=== PATIENT | male | born 2000 | race Caucasian/White ===

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

== ENCOUNTER 2022-03-24 21:30 | Emergency (ER) | payer OTHER ==
[~2022-03-24] VITALS: Ht 190.5 cm; Wt 81.2 kg
[2022-03-24 22:50] LABS: HEMATOCRIT 44.9 % (42.0-52.0); HEMOGLOBIN 14.7 g/dl (13.5-17.5); MEAN CORPUSCULAR HEMOGLOBIN 28.8 pg (27.0-33.0); MEAN CORPUSCULAR HGB CONC 32.7 g/dl (32.0-36.5); PLATELET COUNT, AUTOMATED 192 10^3/uL (150-450); WHITE BLOOD COUNT 10.7 10^3/uL (4.0-10.0)
[2022-03-24 23:17] LABS: ETHYL ALCOHOL (ETHANOL) 0.003 % (0.000-0.010)
[2022-03-24 23:18] LABS: ACETAMINOPHEN LEVEL < 2.0 UG/ML (10.0-20.0); SALICYLATE LEVEL < 3.0 MG/DL (<30)
[2022-03-24 23:19] LABS: BILIRUBIN,DIRECT 0.1 MG/DL (<0.4)
[2022-03-24 23:20] LABS: RSV AMPLIFICATION NEGATIVE (NEGATIVE)
[2022-03-24 23:22] LABS: ALBUMIN 4.5 G/DL (3.2-5.2); ALKALINE PHOSPHATASE 87 U/L (46-116); ALT/SGPT 17 U/L (7.0-40); AST/SGOT 22 U/L (<34); BILIRUBIN,TOTAL 0.4 MG/DL (0.3-1.2); BLOOD UREA NITROGEN 15 MG/DL (9-23); CALCIUM LEVEL 10.1 MG/DL (8.5-10.1); CARBON DIOXIDE LEVEL 29 MMOL/L (20-31); CHLORIDE LEVEL 104 MMOL/L (98-107); GLOMERULAR FILTRATION RATE > 60.0 (>60); GLUCOSE, FASTING 85 MG/DL (60-100); POTASSIUM SERUM 4.1 MMOL/L (3.5-5.1); SODIUM LEVEL 141 MMOL/L (136-145)
[2022-03-24 23:25] LABS: THYROID STIMULATING HORMONE 3.334 uIU/ML (0.55-4.78)
[2022-03-24 23:27] LABS: AMPHETAMINES LEVEL URINE NEGATIVE (NEGATIVE); BARBITURATES URINE NEGATIVE (NEGATIVE); BENZODIAZEPINES URINE NEGATIVE (NEGATIVE); COCAINE METABOLITE URINE NEGATIVE (NEGATIVE); METHADONE URINE NEGATIVE (NEGATIVE)
[2022-03-24 23:28] LABS: CANNABINOIDS URINE NEGATIVE (NEGATIVE); OPIATES URINE NEGATIVE (NEGATIVE); PHENCYCLIDINE URINE NEGATIVE (NEGATIVE)
[2022-03-25 01:03] VITALS: BP 136/74
== END 2022-03-25 01:06 | disposition home or self-care (01) ==
LOC: M ED 21:30
DX: F32.9 Major depressive disorder, single episode, unspecified (principal)

== ENCOUNTER 2022-06-06 14:19 | Emergency (ER) | payer OTHER ==
[~2022-06-06] VITALS: Ht 190.5 cm; Wt 79.4 kg
[2022-06-06] MEDS ORDERED: [UNRECOGNIZED DRUG - CODE] PO (17:27)
[2022-06-06] MEDS ORDERED: IBUP-1022 PO (17:27)
[2022-06-06 17:36] VITALS: BP 113/62
== END 2022-06-06 17:38 | disposition home or self-care (01) ==
LOC: M ED 14:19
DX: S76.911A Strain of unspecified muscles, fascia and tendons at thigh level, right thigh, initial encounter (principal); Y92.39 Other specified sports and athletic area as the place of occurrence of the external cause; Y93.02 Activity, running

== ENCOUNTER 2022-09-23 21:07 | Emergency (ER) | payer OTHER ==
[~2022-09-23] VITALS: Ht 190.5 cm; Wt 84.1 kg
[~2022-09-23 21:07] MED LIST changes: +IBUP-1022 PO; +[UNRECOGNIZED DRUG - CODE] PO
[2022-09-24 05:28] VITALS: BP 120/75; TEMP 97.8; O2SAT 100
== END 2022-09-24 05:30 | disposition home or self-care (01) ==
LOC: M ED 21:07
DX: S40.011A Contusion of right shoulder, initial encounter (principal); Z79.899 Other long term (current) drug therapy

== ENCOUNTER 2024-05-18 12:19 | Day surgery (SDC) | payer OTHER ==
[~2024-05-18] VITALS: Ht 190.5 cm; Wt 91.3 kg
[~2024-05-18 12:19] MED LIST changes: +MIDAZOLAM INJ 2MG/2ML VIAL IV PRN; +ONDA-282 PO; -ONDA4TAB6 PO; +dexAMETHasone 10MG/1ML VIAL PRES.FREE PN ONE; +fentaNYL 100 MCG/2 ML INJECTION IV PRN
[2024-05-18] MEDS ORDERED: fentaNYL 100 MCG/2 ML INJECTION IV PRN ×2 (12:30→16:40)
[2024-05-18] MEDS ORDERED: LIDOCAINE 1% SDV 5ML VIAL PN ONE (12:30)
[2024-05-18] MEDS ORDERED: MIDAZOLAM INJ 2MG/2ML VIAL IV PRN (12:30)
[2024-05-18] MEDS ORDERED: dexAMETHasone 10MG/1ML VIAL PRES.FREE PN ONE (12:30)
[2024-05-18] MEDS ORDERED: EPINEPHrine INJ 1 MG/ML 1ML AMP PN ONE (12:30)
[2024-05-18] MEDS: LR 1,000 ML IV SCH (13:03)
[2024-05-18] MEDS ORDERED: LIDOCAINE 1% SDV 30ML VIAL As Ordered ONE (13:48)
[2024-05-18] MEDS ORDERED: TRANEXAMIC ACID 100 MG/ML 10ML VIAL As Ordered ONE (13:48)
[2024-05-18] MEDS: VANCOMYCIN 1000MG/20ML VIAL As Ordered ONE (13:50)
[2024-05-18] MEDS ORDERED: MIDAZOLAM INJ 2MG/2ML VIAL As Ordered ONE (13:54)
[2024-05-18] MEDS ORDERED: ROCURONIUM BROMIDE 50MG/5ML VIAL As Ordered ONE (13:54)
[2024-05-18] MEDS ORDERED: propofoL 200 MG/20 ML VIAL As Ordered ONE (13:54)
[2024-05-18] MEDS ORDERED: LIDOCAINE 2% 100MG/5ML SDV (FOR ANES.) As Ordered ONE (13:54)
[2024-05-18] MEDS ORDERED: fentaNYL 250 MCG/5 ML INJECTION As Ordered ONE (13:54)
[2024-05-18] MEDS: ceFAZolin SOD 2 GM in IV 1 EA IV ONE (13:59)
[2024-05-18] MEDS: TRANEXAMIC ACID 100 MG/ML 10ML VIAL IV ONE (14:30)
[2024-05-18] MEDS: EPINEPHrine 1MG/ML INJ 30ML MD-VIAL As Ordered ONE (14:30)
[2024-05-18] MEDS ORDERED: ONDANSETRON 4MG 2ML VIAL As Ordered ONE (15:13)
[2024-05-18] MEDS ORDERED: METOCLOPRAMIDE INJ 10MG/2ML VIAL As Ordered ONE (15:13)
[2024-05-18] MEDS ORDERED: ACETAMINOPHEN 1000MG/100ML IV BAG As Ordered ONE (15:29)
[2024-05-18] MEDS ORDERED: HYDROmorphone HCL 2MG/ML 1ML VIAL As Ordered ONE (15:35)
[2024-05-18] MEDS ORDERED: SUGAMMADEX SODIUM 500 MG/5 ML VIAL (BRIDION) As Ordered ONE (15:41)
[2024-05-18] MEDS ORDERED: LR 1,000 ML IV SCH (16:40)
[2024-05-18] MEDS: ONDANSETRON 4MG 2ML VIAL IV PRN (17:30)
[2024-05-18 19:35] VITALS: BP 127/62; TEMP 97.5; O2SAT 95
== END 2024-05-18 19:40 | disposition home or self-care (01) ==
LOC: M SDC 12:19
PROVIDERS: ATTEND Orthopaedic Surgery
DX: M25.311 Other instability, right shoulder (principal); K21.9 Gastro-esophageal reflux disease without esophagitis; M25.511 Pain in right shoulder
CPT/HCPCS: 29806; 64415; C1713; J0131; J0171; J0690; J1100; J1171; J2250; J2405; J2765; J3010

== ENCOUNTER 2024-11-28 16:22 | Emergency (ER) | payer OTHER ==
[~2024-11-28] VITALS: Ht 190.5 cm; Wt 90.0 kg
[~2024-11-28 16:22] MED LIST changes: -IBUP-1022 PO; +IBUP600T42 PO; -MIDAZOLAM INJ 2MG/2ML VIAL IV PRN; -dexAMETHasone 10MG/1ML VIAL PRES.FREE PN ONE; -fentaNYL 100 MCG/2 ML INJECTION IV PRN
[2024-11-28 19:22] VITALS: BP 149/79; TEMP 97.6; O2SAT 97
== END 2024-11-28 19:28 | disposition home or self-care (01) ==
LOC: EDBD 16:22 → M ED 16:22
DX: S13.4XXA Sprain of ligaments of cervical spine, initial encounter (principal); S50.812A Abrasion of left forearm, initial encounter; S40.212A Abrasion of left shoulder, initial encounter; V49.40XA Driver injured in collision with unspecified motor vehicles in traffic accident, initial encounter; F41.9 Anxiety disorder, unspecified; F32.A Depression, unspecified; Y92.410 Unspecified street and highway as the place of occurrence of the external cause; Y93.89 Activity, other specified; Y99.9 Unspecified external cause status

== ENCOUNTER 2025-01-17 09:57 | Day surgery (SDC) | payer OTHER ==
[~2025-01-17] VITALS: Ht 190.5 cm; Wt 91.4 kg
[2025-01-17] MEDS ORDERED: LIDOCAINE 2% 100 MG/5 ML SDV (FOR ANES.) As Ordered ONE (10:46)
[2025-01-17] MEDS ORDERED: ROCURONIUM BROMIDE 50MG/5ML VIAL As Ordered ONE (10:46)
[2025-01-17] MEDS ORDERED: MIDAZOLAM INJ 2 MG/2 ML VIAL As Ordered ONE (10:47)
[2025-01-17] MEDS ORDERED: dexAMETHasone 4 MG/ML 1 ML VIAL As Ordered ONE (12:07)
[2025-01-17] MEDS ORDERED: ONDANSETRON 4MG/2ML VIAL As Ordered ONE (12:07)
[2025-01-17] MEDS ORDERED: ACETAMINOPHEN 1000MG/100ML IV BAG As Ordered ONE (12:10)
[2025-01-17] MEDS ORDERED: SUGAMMADEX SODIUM 500 MG/5 ML VIAL As Ordered ONE (12:18)
[2025-01-17] MEDS ORDERED: GLYCOPYRROLATE INJ 0.2 MG/ML 2 ML VIAL As Ordered ONE (12:22)
[2025-01-17] MEDS: LIDOCAINE W/EPINEPHrine 1% 20 ML VIAL As Ordered ONE (12:38)
[2025-01-17] MEDS: METHYLENE BLUE 0.5% (5 MG/ML) 10 ML AMP As Ordered ONE (12:39)
[2025-01-17] MEDS: OXYMETAZOLINE 0.05% NASAL SPRAY As Ordered ONE (12:39)
[2025-01-17] MEDS ORDERED: HYDROMORPHONE HCL 0.5 MG/0.5 ML SYRINGE IV PRN (12:45)
[2025-01-17] MEDS ORDERED: MORPHINE 4 MG/ML 1 ML VIAL IV PRN (12:45)
[2025-01-17] MEDS: ONDANSETRON 4MG/2ML VIAL IV PRN (13:31)
[2025-01-17 13:52] VITALS: BP 136/81; TEMP 97.4; O2SAT 99
[2025-01-17] MEDS ORDERED: LR 1,000 ML IV SCH (15:05)
[2025-01-17] MEDS ORDERED: ONDANSETRON 4MG/2ML VIAL IV PRN (15:05)
[2025-01-17] MEDS ORDERED: AMOX875T PO (20:09)
== END 2025-01-17 14:20 | disposition home or self-care (01) ==
LOC: M SDC 09:57
PROVIDERS: ATTEND Otolaryngology
DX: J34.2 Deviated nasal septum (principal)
CPT/HCPCS: 30520; J0131; J1100; J1596; J2250; J2405; J3010; J3490

== ENCOUNTER 2025-01-20 19:51 | Emergency (ER) | payer OTHER ==
[~2025-01-20] VITALS: Ht 190.5 cm; Wt 89.2 kg
[~2025-01-20 19:51] MED LIST changes: +AMOX875T PO
[2025-01-20] MEDS ORDERED: PSEU-52 PO (20:09)
[2025-01-20] MEDS ORDERED: OXYC1TAB23 PO (20:09)
[2025-01-20 21:05] LABS: BASO # 0.0 10^3/uL (0.0-0.2); BASO % 0.3 % (0.0-1.0); EOS # 0.3 10^3/uL (0.0-0.5); EOS % 2.2 % (0.0-3.0); LYMPH # 1.7 10^3/uL (1.5-5.0); LYMPH % 10.8 % (24.0-44.0); MONO # 1.4 10^3/uL (0.0-0.8); MONO % 8.8 % (2.0-8.0); NEUTROPHILS # 11.9 10^3/uL (1.5-8.5); NEUTROPHILS % 77.6 % (36.0-66.0); PLATELET COUNT, AUTOMATED 203 10^3/uL (150-450)
[2025-01-20 21:09] LABS: CPK CREATINE PHOSPHOKINASE 140 U/L (46-171)
[2025-01-20 21:10] LABS: CALCIUM LEVEL 9.8 MG/DL (8.5-10.1); CARBON DIOXIDE LEVEL 27 MMOL/L (20-31); CHLORIDE LEVEL 100 MMOL/L (98-107); CK-MB VALUE MASS 10.6 NG/ML (<3.6); CREATININE FOR GFR 1.07 MG/DL (0.70-1.30); GLOMERULAR FILTRATION RATE > 90.0 (>60); MB/CK RELATIVE INDEX 7.57 (< OR =4); POTASSIUM SERUM 4.0 MMOL/L (3.5-5.1); SODIUM LEVEL 138 MMOL/L (136-145)
[2025-01-20] MEDS ORDERED: ISOVUE-370 76% 100 ML VIAL As Ordered ONE (22:05)
[2025-01-20 22:17] LABS: CK-MB VALUE MASS 13.7 NG/ML (<3.6)
[2025-01-20 22:21] LABS: CPK CREATINE PHOSPHOKINASE 187.0 U/L (46-171); MB/CK RELATIVE INDEX 7.32 (< OR =4)
[2025-01-20] MEDS: AMOXICILLIN 500 MG CAP PO ONE (22:37)
[2025-01-20] MEDS: ASPIRIN 81 MG CHEWABLE TABLET PO ONE (22:37)
[2025-01-20 23:06] LABS: D-DIMER QUANT 0.43 ug/mL (<0.5); INR 1.04
[2025-01-20] MEDS: PERCOCET 5MG/325MG TAB PO ONE (23:59)
[2025-01-21] MEDS ORDERED: HEPARIN SOD 5000 UNITS/ML 1 ML VIAL/SYRINGE IV PRN
[2025-01-21 00:42] LABS: CK-MB VALUE MASS 18.3 NG/ML (<3.6)
[2025-01-21] MEDS: HEPARIN SOD 5000 UNITS/ML 1 ML VIAL/SYRINGE IV ONE (00:44)
[2025-01-21] MEDS: HEPARIN DRIP 25,000 UNITS in IV 1 EA IV SCH (00:45)
[2025-01-21 00:56] LABS: CPK CREATINE PHOSPHOKINASE 249.0 U/L (46-171); MB/CK RELATIVE INDEX 7.34 (< OR =4)
[2025-01-21] MEDS ORDERED: PSEU30TA88 PO (01:27)
[2025-01-21] MEDS ORDERED: EQL0.65S NARES (01:27)
[2025-01-21] MEDS ORDERED: HOME MED LIST COMPLETE! XX SCH (01:30)
[2025-01-21 01:36] LABS: PLATELET COUNT, AUTOMATED 207 10^3/uL (150-450)
[2025-01-21 01:47] LABS: C REACTIVE PROTEIN QUANTITATIV 20.38 MG/DL (<1.0)
[2025-01-21] MEDS: ATORVASTATIN 20 MG TAB PO ONE (02:04)
[2025-01-21] MEDS: ACETAMINOPHEN *IV* 1,000 MG in IV 1 EA IV ONE (05:15)
[2025-01-21 06:40] VITALS: BP 131/88; TEMP 97.4; O2SAT 97
== END 2025-01-21 06:46 | disposition other institution (70) ==
LOC: M ED 19:51
DX: I51.4 Myocarditis, unspecified (principal); G54.0 Brachial plexus disorders; Z86.718 Personal history of other venous thrombosis and embolism
CPT/HCPCS: 71045; 71275; 80048; 82550; 82553; 83880; 84443; 84484; 85025; 85027; 85379; 85610; 85652; 85730; 86140; 87486; 87581; 87633; 87798; 93005; 93041; 94760; 96365; 96366; 96368; 99291; J0134; Q9967